=== PATIENT | male | born 2000 | race Caucasian/White ===

== ENCOUNTER 2020-08-16 17:02 | Emergency (ER) | payer SELFPAY ==
[~2020-08-16] VITALS: Ht 167.6 cm; Wt 61.0 kg
[2020-08-16] MEDS ORDERED: LORAZEPAM 2MG/ML CPJ IM PRN (17:30)
[2020-08-16 17:42] LABS: BASOPHILS % 0.5 % (0.0-2.0); EOSINOPHILS % 0.2 % (0.0-5.0); HEMATOCRIT. 41.6 % (42.0-52.0); HEMOGLOBIN. 13.7 g/dL (14.0-18.0); LYMPHOCYTES % 23.8 % (20.0-50.0); MEAN CORPUSCULAR VOLUME 84.9 fL (80.0-94.0); MEAN PLATELET VOLUME 11.6 fl (7.4-10.4); MONOCYTES % 7.5 % (2.0-8.0); PLATELET 182 x1000/uL (130-400); RED CELL DISTRIBUTION WIDTH 15.4 % (11.6-14.6)
[2020-08-16] MEDS ORDERED: SODIUM CHLORIDE 0.9% 1,000 ML IV ONE (17:45)
[2020-08-16] MEDS ORDERED: DIPHENHYDRAMINE 50MG/ML VIAL IM PRN (17:45)
[2020-08-16 17:48] LABS: CHLORIDE 107 mEq/L (98-107)
[2020-08-16 17:53] LABS: ETHANOL BLOOD < 10 mg/dL
[2020-08-16] MEDS ORDERED: HALOPERIDOL LACTATE 5MG/ML VIAL IM NR (18:00)
[2020-08-17 07:55] VITALS: BP 119/77
== END 2020-08-17 09:07 | disposition home or self-care (01) ==
LOC: ER 17:02
DX: F10.129 Alcohol abuse with intoxication, unspecified (principal); Y90.0 Blood alcohol level of less than 20 mg/100 ml; Z78.1 Physical restraint status
CPT/HCPCS: 36415; 80053; 80307; 80320; 80329; 85025; 96372; 99285; J1200; J1630; J2060; Z7610; 80305; G0480